=== PATIENT | female | born 1940 | race Caucasian/White ===

== ENCOUNTER 2018-10-07 07:53 | Emergency (ER) | payer MEDICARE ==
[2018-10-07] MEDS ORDERED: ONDANSETRON HCL IV 4 MG/2 ML VIAL IV ONE (08:18)
[2018-10-07] MEDS ORDERED: 0.9 % SODIUM CHLORIDE 1,000 ML BAG IV ONE (08:18)
--- NOTE | 2018-10-07 08:18 | Emergency Department Record ---
History of Present Illness - General Chief complaint: Weakness Stated complaint: WEAKNESS/NAUSEA Time Seen by Provider: 10/07/18 08:09 Source: Patient Mode of Arrival: Ambulatory Limitations: No limitations - History of Present Illness Initial comments: The patient is here due to not feeling well for 3-4 days. She has had generalized weakness, constipation, nausea and no energy. Recently she has felt lightheaded with standing at times. There has been no hx of fever, chills, CP, SOB, vomiting, or diarrhea. She has had mild upper AP at times. MD Complaint: Generalized weakness, Lack of energy Onset/Timin -: Days(s) Improves with: None Worsens with: None Associated Symptoms: Nausea/vomiting - Tiffanie Coma Scale Eye Response: (4) Open spontaneously Motor Response: (6) Obeys commands Verbal Response: (5) Oriented T[place]anie Total: 15 - Related Data Home Medications Medication Instructions Recorded Confirmed Last Taken Amitriptyline HCl 25 mg PO DAILY 10/07/18 10/07/18 Unknown Duloxetine HCl [Cymbalta] 30 mg PO QAM 10/07/18 10/07/18 Unknown Levothyroxine Sodium 100 mcg PO QAM 10/07/18 10/07/18 Unknown Pantoprazole Sodium 40 mg PO QAM 10/07/18 10/07/18 Unknown Previous Rx's Medication Instructions Recorded Fluticasone/Salmeterol [Advair Hfa 1 puff IH BID #1 hfa.aer.ad 07/25/15 45-21 Mcg Inhaler] Inhaler, Assist Devices [Space 1 each MC BID #1 spacer 07/25/15 Chamber Plus] Ondansetron [Zofran Odt] 4 mg SL .Q4-6H PRN #12 tab.rapdis 10/07/18 Allergies Allergy/AdvReac Type Severity Reaction Status Date / Time Sulfa (Sulfonamide Allergy Mild RASH Verified 10/07/18 08:01 Antibiotics) codeine AdvReac Mild NAUSEA Verified 10/07/18 08:01 Travel Screening - Travel/Exposure Within Last 30 Days Have you traveled within the last 30 days?: No Review of Systems Constitutional: Denies: Chills, Fever Eyes: Denies: Eye discharge ENT: Denies: Congestion Respiratory: Denies: Cough, Dyspnea Cardiovascular: Denies: Arrhythmia, Chest pain Endocrine: Denies: Fatigue Gastrointestinal: Reports: Nausea Genitourinary: Denies: Dysuria Musculoskeletal: Denies: Arthralgia Skin: Denies: Bruising Past Medical History - SOCIAL HISTORY Smoking Status: Never smoker Alcohol Use: None Drug Use: None - RESPIRATORY Hx Respiratory Disorders: Yes Hx Asthma: Yes - CARDIOVASCULAR Hx Cardio Disorders: No - NEURO Hx Neuro Disorders: Yes Hx Neuropathy: Yes - GI Hx GI Disorders: Yes Hx Reflux: Yes - Hx Genitourinary Disorders: Yes Hx UTI: Yes - ENDOCRINE Hx Endocrine Disorders: Yes Hx Thyroid Disease: Yes - MUSCULOSKELETAL Hx Musculoskeletal Disorders: No - PSYCH Hx Psych Problems: No - HEMATOLOGY/ONCOLOGY Hx Hematology/Oncology Disorders: No Hx Blood Transfusions: No Family Medical History Any Significant Family History?: Yes Hx Heart Disease: Mother, Children Physical Exam - General General Appearance: Alert, Oriented x3, Cooperative, No acute distress - Head Head exam: Atraumatic, Normocephalic, Normal inspection - Eye Eye exam: Normal appearance, PERRL, EOMI - ENT Throat exam: Normal inspection. negative: Tonsillar erythema, Tonsillar exudate - Neck Neck exam: Normal inspection, Full ROM. negative: Tenderness - Respiratory Respiratory exam: Normal lung sounds bilaterally. negative: Respiratory distress - Cardiovascular Cardiovascular Exam: Regular rate, Normal rhythm, Normal heart sounds - GI/Abdominal GI/Abdominal exam: Soft, Normal bowel sounds, Tenderness (There is very mild upper abdominal tenderness with the abdomen being very soft.). negative: Rebound, Rigid - Extremities Extremities exam: Normal inspection, Full ROM, Normal capillary refill. negative: Tenderness - Neurological Neurological exam: Alert. negative: Motor sensory deficit Course Vital Signs 10/07/18 07:59 Temperature 97.5 F L Pulse Rate 76 Respiratory 18 Rate Blood Pressure 157/90 Pulse Ox 99 - Reevaluation(s) Reevaluation #1: The patient is doing better at this time. Her nausea is improved and she is resting comfortably. 10/07/18 09:27 Reevaluation #2: The patient is doing very well at this time. I did explain to her that her test results are normal. Since she is feeling better we will discharge to home and have her F/U with her PCP. On exam her abdomen is very soft and nontender in all 4 quads. 10/07/18 09:50 10/07/18 09:55 Medical Decision Making - Data Complexity MDM Data: Labs Ordered and/or Reviewed, X-Ray Ordered and/or Reviewed, EKG Ordered and/or Reviewed - Lab Data Result diagrams: 10/07/18 08:10 10/07/18 08:10 - EKG Data -: EKG Interpreted by Me EKG: No Acute Changes, Normal EKG - Radiology Data Radiology results: Report reviewed (Abd CT: Neg.) Disposition Disposition: Discharge Clinical Impression: Nausea alone Disposition: Home, Self-Care Condition: (2) Stable Instructions: Weakness (ED) Additional Instructions: Please take the Zofran for nausea and continue your regular medicines. Please see your family doctor tomorrow or Thursday for recheck. Return to the ER for any worsening symptoms, pain, fever, or vomiting. Prescriptions: Ondansetron [Zofran Odt] 4 mg SL .Q4-6H PRN #12 tab.rapdis PRN Reason: Nausea Forms: Patient Portal Access Time of Disposition: 09:49 Quality - Quality Measures Quality Measures: N/A - Blood Pressure Screening View Details: Yes Does Patient Have Any of the Following: No Blood Pressure Classification: Pre-Hypertensive BP Reading Systolic Measurement: 135 Diastolic Measurement: 53 Screening for High Blood Pressure: < Pre-Hypertensive BP, F/U Documented > [ G8950] Pre-Hypertensive Follow-up Interventions: Referral to alternative/primary care provider.
[2018-10-07 08:35] LABS: BASO % 0.2 % (0-6); EOS % 2.3 % (0-6); GRAN % 50.2 % (47-80); HEMATOCRIT 42.6 % (35.0-47.0); LYMPH % 37.6 % (16-45); MEAN CELL VOLUME 88.9 fl (81-97); MEAN CORPUSCULAR HEMOGLOBIN 29.2 pg (27-33); MEAN CORPUSCULAR HGB CONC 32.9 g/dl (32-36); MEAN PLATELET VOLUME 11.2 fl (7.4-10.4); MONO % 9.7 % (0-9); PLATELET COUNT 177 K/uL (130-400); RED BLOOD COUNT 4.79 M/uL (3.80-5.40); RED CELL DISTRIBUTION WIDTH 13.9 % (11.5-14.5); WHITE BLOOD COUNT W/O DIFF 5.7 K/uL (4.2-12.2)
[2018-10-07 08:48] LABS: BLOOD UREA NITROGEN 12 mg/dL (8-23); CREATININE 0.8 mg/dL (0.5-0.9); EST GLOMERULAR FILTRATION RATE > 60 mL/min
[2018-10-07 08:49] LABS: TOTAL PROTEIN 7.6 g/dL (6.6-8.7)
[2018-10-07 08:51] LABS: GLUCOSE,RANDOM 99 mg/dL (74-109)
[2018-10-07 08:53] LABS: ALT/SGPT 17 U/L (<33); AST/SGOT 23 U/L (10.0-35.0)
[2018-10-07 08:54] LABS: ALBUMIN 4.4 g/dL (4.0-5.0); ALKALINE PHOSPHATASE 97 U/L (35-104); LIPASE 41 U/L (13-60)
[2018-10-07 08:58] LABS: BILIRUBIN,DIRECT < 0.2 mg/dL (0-0.3)
[2018-10-07 09:19] LABS: URINE APPEARANCE CLEAR; URINE BILIRUBIN NEGATIVE (NEGATIVE); URINE BLOOD TRACE-I (NEGATIVE); URINE COLOR YELLOW; URINE GLUCOSE (UA) NEGATIVE (NEGATIVE); URINE KETONE TRACE (NEGATIVE); URINE LEUKOCYTE ESTERASE NEGATIVE (NEGATIVE); URINE NITRITE NEGATIVE (NEGATIVE); URINE PROTEIN NEGATIVE (NEGATIVE); URINE UROBILINOGEN 0.2 E.U./dL (0.20 - 1.00)
[2018-10-07 09:34] LABS: URINE RBC 0 - 2 (NONE SEEN); URINE WBC NONE SEEN (0-2/hpf)
--- NOTE | 2018-10-08 06:11 | CT SCAN REPORT ---
DATE: 10/07/2018. EXAM: CT OF THE ABDOMEN AND PELVIS WITHOUT CONTRAST. HISTORY: NAUSEA. TECHNIQUE: Sequential axial images were obtained from the diaphragm through the ischiorectal fossa without intravenous or oral contrast administration. FINDINGS: The visualized lung bases appear normal. No gross abnormalities within the liver. No gallstones or ductal dilatation. The pancreas and spleen appear normal. The adrenal glands and kidneys appear normal. No CT findings suggestive of obstructive uropathy. The small bowel appears normal. The colon appears normal. The urinary bladder appears normal. The osseous structures are normal. IMPRESSION: NO ACUTE ABDOMINAL OR PELVIC DISEASE PROCESS. JOB NUMBER: [id number] MTDD
== END 2018-10-07 10:04 | disposition home or self-care (01) ==
LOC: ER 07:53
DX: R11.0 Nausea (principal); R10.10 Upper abdominal pain, unspecified; R53.1 Weakness
CPT/HCPCS: 99284 ×2; 96374; 83690; 85025; 80076; 80048; 81001; 84484; 74176; 93005; 93010; J2405; J7030

== ENCOUNTER 2018-10-30 11:22 | Emergency (ER) | payer MEDICARE ==
--- NOTE | 2018-10-30 11:32 | Emergency Department Record ---
History of Present Illness - General Chief Complaint: Abdominal Pain Stated Complaint: CONSTIPATED Time Seen by Provider: 10/30/18 11:24 Source: Patient, Family Mode of Arrival: Ambulatory Limitations: No limitations - History of Present Illness Initial Comments: 77 yo female presents with a concern about constipation for a week and a half. Her last normal bowel movement was then. Since then she has been passing occasional small "walnut size" firm stone. She has tried Miralax (one dose) without improvement and one dose of milk of magnesia. No fever. She vomited once last night intentionally but otherwise no vomiting. No blood in the stools. No fever. She was seen in the ER in September and had an unremarkable CT scan. Her last colonoscopy was about 3 years ago and was "normal". 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 Complaint: Other (Constipation one week) -: Week(s) (1) Location: Diffuse Radiation: Other Severity: Moderate Quality: Cramping Consistency: Constant Improves With: Nothing Worsens With: Nothing Context: Other Associated Symptoms: Denies other symptoms - Related Data Previous Rx's Medication Instructions Recorded Fluticasone/Salmeterol [Advair Hfa 1 puff IH BID #1 hfa.aer.ad 07/25/15 45-21 Mcg Inhaler] Inhaler, Assist Devices [Space 1 each MC BID #1 spacer 07/25/15 Chamber Plus] Ondansetron [Zofran Odt] 4 mg SL .Q4-6H PRN #12 tab.rapdis 10/07/18 Docusate Sodium [Colace] 100 mg PO BID #20 cap 10/30/18 Polyethylene Glycol 3350 [Miralax] 17 gm PO BID #20 packet 10/30/18 Allergies Allergy/AdvReac Type Severity Reaction Status Date / Time Sulfa (Sulfonamide Allergy Mild RASH Verified 10/30/18 12:06 Antibiotics) codeine AdvReac Mild NAUSEA Verified 10/30/18 12:06 Review of Systems Constitutional: Denies: Chills, Fever, Malaise, Weakness Eyes: Denies: Eye discharge ENT: Denies: Congestion, Throat pain Respiratory: Denies: Dyspnea Cardiovascular: Denies: Chest pain, Syncope Endocrine: Denies: Fatigue Gastrointestinal: Reports: Abdominal pain (cramps), Vomiting (Once that was self induced last night). Denies: Diarrhea Genitourinary: Denies: Dysuria Musculoskeletal: Denies: Arthralgia, Back pain, Myalgia Skin: Denies: Bruising, Change in color, Rash Neurological: Denies: Confusion Psychiatric: Denies: Anxiety Hematological/Lymphatic: Denies: Easy bleeding, Easy bruising Past Medical History - SOCIAL HISTORY Smoking Status: Never smoker Drug Use: None - RESPIRATORY Hx Respiratory Disorders: Yes Hx Asthma: Yes - CARDIOVASCULAR Hx Cardio Disorders: No - NEURO Hx Neuro Disorders: Yes Hx Neuropathy: Yes - GI Hx GI Disorders: Yes Hx Reflux: Yes - Hx Genitourinary Disorders: Yes Hx UTI: Yes - ENDOCRINE Hx Endocrine Disorders: Yes Hx Thyroid Disease: Yes - MUSCULOSKELETAL Hx Musculoskeletal Disorders: No - PSYCH Hx Psych Problems: No - HEMATOLOGY/ONCOLOGY Hx Hematology/Oncology Disorders: No Hx Blood Transfusions: No Family Medical History Hx Heart Disease: Mother, Children Physical Exam - General General Appearance: Alert, Oriented x3, Cooperative, No acute distress Limitations: No limitations - Head Head exam: Atraumatic, Normal inspection - Eye Eye exam: Normal appearance. negative: Conjunctival injection - ENT ENT exam: Normal exam Ear exam: Normal external inspection Nasal Exam: Normal inspection Mouth exam: Normal external inspection - Neck Neck exam: Normal inspection - Respiratory Respiratory exam: Normal lung sounds bilaterally. negative: Respiratory distress - Cardiovascular Cardiovascular Exam: Regular rate, Normal rhythm, Normal heart sounds - GI/Abdominal GI/Abdominal exam: Soft, Normal bowel sounds, Other. negative: Diminished bowel sounds, Distended, Guarding, Hyperactive bowel sounds, Tenderness - exam: Deferred - Extremities Extremities exam: Normal inspection - Back Back exam: Denies: CVA tenderness (R), CVA tenderness (L) - Neurological Neurological exam: Alert, Oriented X3 - Psychiatric Psychiatric exam: Normal affect, Normal mood - Skin Skin exam: Dry, Intact, Normal color, Warm Course - Reevaluation(s) Reevaluation #1: 10/30/18 12:00 The vitals were reviewed. No significant abnormalities The XR was reviewed. No acute pathology. Mild stool is present throughout the colon. No signs of obstruction. 10/30/18 12:12 Rectal exam: Heme negative, no hemorrhoids or mass. No stool at the anus. 10/30/18 12:22 Given no stool in the rectal vault an enema may not be of benefit. We discussed stool softeners, increasing fluids, fiber. We discussed home care, follow up and reasons to return Disposition Disposition: Discharge Clinical Impression: Constipation Qualifiers: Constipation type: unspecified constipation type Qualified Code(s): K59.00 - Constipation, unspecified Disposition: Home, Self-Care Condition: (1) Good Instructions: Constipation (ED), Abdominal Pain (ED) Additional Instructions: Stay well hydrated by increasing your fluid intake You may take the medications twice daily as directed Be seen if worse, fever, pain, vomiting or ongoing concerns with your constipation Prescriptions: Docusate Sodium [Colace] 100 mg PO BID #20 cap Polyethylene Glycol 3350 [Miralax] 17 gm PO BID #20 packet Forms: Patient Portal Access Time of Disposition: 12:24 Quality - Quality Measures Quality Measures: N/A - Blood Pressure Screening Does Patient Have Any of the Following: No Blood Pressure Classification: Pre-Hypertensive BP Reading Systolic Measurement: 126 Diastolic Measurement: 78 Screening for High Blood Pressure: < Pre-Hypertensive BP, F/U Documented > [ G8950] Pre-Hypertensive Follow-up Interventions: Referral to alternative/primary care provider.
--- NOTE | 2018-11-01 09:15 | RADIOLOGY REPORT ---
EXAM: ABDOMEN, TWO VIEWS HISTORY: CONSTIPATION AND NAUSEA FOR THE PAST THREE WEEKS. TECHNIQUE: Supine and upright AP views of the abdomen were obtained. Comparison: Previous CT scan of the abdomen and pelvis dated 10/07/18. FINDINGS: The abdominal gas pattern is unremarkable. Only mild stool and air are present within the colon. There is no obstruction or pneumoperitoneum. There is no organomegaly or visible urinary tract calculus. The bones appear intact. IMPRESSION: NO ACUTE INTRAABDOMINAL PATHOLOGY. JOB NUMBER: [id number] [facility]
== END 2018-10-30 12:27 | disposition home or self-care (01) ==
LOC: ER 11:22
DX: K59.00 Constipation, unspecified (principal); R11.0 Nausea
CPT/HCPCS: 74019; 99283